=== PATIENT | female | born 1960 | race Caucasian/White ===

== ENCOUNTER 2023-11-24 10:33 | Emergency (ER) | payer BC ==
[2023-11-24 11:01] LABS: #Basophils 0.2 thou/uL (0.0-0.2); #Eosinphils 0.3 thou/uL (0.0-0.7); #Lymphocytes 2.7 thou/uL (1.20-3.40); #Monocytes 1.3 thou/uL (0.11-0.59); #Neutrophils 6.2 thou/uL (1.40-6.50); %Basophils 1.7 % (0.0-1.0); %Eosinophils 2.7 % (0.0-10.0); %Lymphocytes 25.6 % (21.0-51.0); %Monocytes 12.2 % (0.0-10.0); %Neutrophils 57.8 % (42.0-75.0); Hematocrit 42.2 % (36.0-47.0); Hemoglobin 14.6 g/dL (12.0-16.0); Mean Corpuscular HGB CONC 34.6 g/dL (32.0-36.0); Mean Corpuscular Hemoglobin 31.5 pg (27.0-31.0); Mean Corpuscular Volume 91.2 fl (78.0-98.0); Mean Platelet Volume 6.9 fL (7.4-10.4); Platelet Count 338 10x3/uL (130-400); RBC Distribution Width 11.4 % (11.5-14.5); Red Blood Cell (RBC) Count 4.63 mill/uL (4.20-5.40); White Blood Cell (WBC) Count 10.7 10x3/uL (4.8-10.8)
[2023-11-24 11:10] LABS: INR-International Normal Ratio 0.9; Prothrombin Time 12.5 sec (12.0-14.7)
[2023-11-24 11:11] LABS: PTT 24.8 sec (22.9-36.1)
[2023-11-24 11:12] LABS: ALT (SGPT) 42 U/L (8-55); AST (SGOT) 30 U/L (5-34); Albumin 4.3 g/dL (3.4-4.8); Alkaline Phosphatase 65 U/L (40-110); Anion Gap 17 mmol/L (10-20); BUN (Urea Nitrogen) 14 mg/dL (9.8-20.1); Bilirubin, Total 0.2 mg/dL (0.2-1.2); Calc. Creatinine Clearance 0 mL/min (70-130); Carbon Dioxide 19 mmol/L (23-31); Chloride 105 mmol/L (98-107); Estimated GFR 84; Globulin 2.9 g/dL (2.4-3.5); Glucose 106 mg/dL (80-115); Magnesium 1.9 mg/dL (1.6-2.6); Potassium 3.6 mmol/L (3.5-5.1); Protein, Total 7.2 g/dL (5.8-8.1); Sodium 137 mmol/L (136-145)
[2023-11-24 11:13] LABS: D-Dimer Test 0.43 mcg/mL (0.27-0.43); Troponin I Less than 0.010 ng/mL (< 0.028)
== END 2023-11-24 13:00 | disposition home or self-care (01) ==
LOC: BURERS 10:33
DX: R07.89 Other chest pain (principal); R42 Dizziness and giddiness; R29.710 NIHSS score 10; I10 Essential (primary) hypertension; Z79.82 Long term (current) use of aspirin; Z79.899 Other long term (current) drug therapy
CPT/HCPCS: 70450; 71046; 80053; 83735; 83880; 84484; 85025; 85379; 85610; 85730